=== PATIENT | male | born 1995 | race Caucasian/White ===

== ENCOUNTER 2019-01-18 00:10 | Emergency (ER) | payer BC, OTHER ==
--- NOTE | 2019-01-18 01:09 | ED ---
Substance Abuse/Use - HPI Summary HPI Summary: The pt is a 23 yr old male presenting to [facility] c/o alcohol intoxication beginning several hours [employer]. He states that he was drinking too much starting at 1700 01/17/2019. His friends drove him to the hospital and he notes that he is feeling much better than when he arrived. He rates his current pain severity a 0/10. No aggravating or alleviating factors noted. He also reports vomiting but denies fever. - History Of Current Complaint Chief Complaint: EDSubstanceAbuse Stated Complaint: VOMITING Time Seen by Provider: 01/18/19 01:00 Hx Obtained From: Patient Onset/Duration of Drug/ETOH Abuse: Hours Ingestion History: Type/Name Of Drug - alcohol Overdose Characteristics: Oral Timing Of Abuse: Intermittent Severity Initially: Moderate Severity Currently: Mild Aggravating Factor(s): Nothing Alleviating Factor(s): Nothing Associated Signs And Symptoms: Other: - neg - fever - Allergies/Home Medications Allergies/Adverse Reactions: Allergies Allergy/AdvReac Type Severity Reaction Status Date / Time gluten Allergy GI Upset Verified 01/18/19 00:28 PMH/Surg Hx/FS Hx/Imm Hx Sensory History: Denies: Hx Legally Blind, Hx Deafness Opthamlomology History: Denies: Hx Legally Blind EENT History: Denies: Hx Deafness - Surgical History Surgical History: None Surgery Procedure, Year, and Place: none Infectious Disease History: No Infectious Disease History: Reports: Traveled Outside the [place] in Last 30 Days - Social History Alcohol Use: Rare Substance Use Type: Reports: Marijuana Substance Use Comment - Amount & Last Used: "rarely" Smoking Status (MU): Never Smoked Tobacco Review of Systems Negative: Fever Positive: Vomiting All Other Systems Reviewed And Are Negative: Yes Physical Exam - Summary Physical Exam Summary: General: Well-developed, thin male, no apparent distress, sleepy. HEENT: Normocephalic, Atraumatic. Eyes: Conjuctiva normal, PERRL. Ears: TMs within normal limits. Nares: (-) discharge, (-) erythema. Oropharynx: Clear, mucous membranes moist, (-) exudates. Neck: Soft, FROM, (-) lymphadenopathy, (-) thyromegaly, (-) JVD. Cardiovascular: Normal sinus rhythm, (-) murmur. Lungs: Clear to auscultation bilaterally (-) wheezes, (-) rales, (-) rhonchi. Abdomen: Soft, non-tender, non-distended, (-) organomegaly, normal bowel sounds. Back: (-) CVA tenderness Extremities: No edema. Skin: Warm, dry, (-) rash. Neuro: Alert and oriented x3, no focal deficits. Psychiatric: Mood normal, affect normal. Triage Information Reviewed: Yes Vital Signs On Initial Exam: Initial Vitals Temp Pulse Resp BP Pulse Ox 96.5 F 85 14 112/75 96 01/18/19 00:16 01/18/19 00:16 01/18/19 00:16 01/18/19 00:16 01/18/19 00:16 Vital Signs Reviewed: Yes Procedures - Sedation Patient Received Moderate/Deep Sedation with Procedure: No Diagnostics - Vital Signs Vital Signs Temp Pulse Resp BP Pulse Ox 01/18/19 00:16 96.5 F 85 14 112/75 96 - Laboratory Lab Statement: Any lab studies that have been ordered have been reviewed, and results considered in the medical decision making process. Re-Evaluation - Re-Evaluation First Eval Re-Evaluation Time: 01:42 Comment: I have discussed results with the patient and (Sx) is resolved. Discussed symptoms that warrant immediate return to ED. Course/Dx - Course Course Of Treatment: The pt is a 23 yr old male presenting to [facility] c/o alcohol intoxication beginning several hours [employer]. No test or imaging results to report. Final Dx is acute alcohol intoxication. Pt will be discharged home with PCP follow up. Pt is agreeable with this plan. - Diagnoses Provider Diagnoses: Acute alcohol intoxication Discharge ED - Sign-Out/Discharge Documenting (check all that apply): Patient Departure - discharge - Discharge Plan Condition: Stable Disposition: HOME Patient Education Materials: Alcohol Intoxication (ED) Print Language: [email or web address] [facility]errals: [facility] - Cristopher ALFREDO [Primary Care Provider] - Additional Instructions: Please follow up with your primary care physician within three days. Please return to ED for any new or worsening symptoms. - Billing Disposition and Condition Condition: STABLE Disposition: Home - Attestation Statements Document Initiated by Scribe: Yes Documenting Scribe: Francisco Craig Provider For Whom Scribe is Documenting (Include Credential): Winter Danielle MD Scribe Attestation: Francisco Bo, scribed for Winter Danielle MD on 01/18/19 at 0325. Scribe Documentation Reviewed: Yes Provider Attestation: The documentation as recorded by the scribe, Francisco Craig accurately reflects the service I personally performed and the decisions made by me, Winter Danielle MD Status of Scribe Document: Viewed
[2019-01-18 01:28] VITALS: BP 124/76
== END 2019-01-18 01:27 | disposition home or self-care (01) ==
LOC: EDBD → ED 00:10
DX: F10.929 Alcohol use, unspecified with intoxication, unspecified (principal)
CPT/HCPCS: 99282